=== PATIENT | male | born 1990 | race Caucasian/White ===

== ENCOUNTER 2018-04-28 08:02 | Inpatient (IN) | payer MEDICAID ==
[~2018-04-28] VITALS: Ht 172.7 cm; Wt 73.5 kg
[2018-04-28] MEDS ORDERED: PANTOPRAZOLE SODIUM 40 MG/VIAL IV STA (08:23)
[2018-04-28] MEDS ORDERED: SODIUM CHLORIDE 0.9% 1,000 ML IV ONE (08:23)
[2018-04-28] MEDS ORDERED: PANTOPRAZOLE 80 MG in SODIUM CHLORIDE 0.9% 80 ML IV ONE (08:30)
[2018-04-28] MEDS ORDERED: OCTREOTIDE ACETATE 50 MCG/ML 1ML IV ONE (08:30)
[2018-04-28] MEDS ORDERED: OCTREOTIDE 1,000 MCG in SODIUM CHLORIDE 0.9% 100 ML IV ONE ×2 (08:30→10:00)
[2018-04-28] MEDS ORDERED: ONDANSETRON HCL 4MG/2ML INJ IV ONE (08:30)
[2018-04-28 09:09] LABS: BASOPHILS % 0.7 % (0.0-2.0); HEMATOCRIT. 39.1 % (42.0-52.0); HEMOGLOBIN. 13.2 g/dL (14.0-18.0); MEAN CORPUSCULAR HEMOGLOBIN 31.5 pg (28.0-32.0); MEAN CORPUSCULAR VOLUME 93.3 fL (80.0-94.0); MEAN PLATELET VOLUME 8.8 fl (7.4-10.4); MONOCYTES % 4.1 % (2.0-8.0); NEUTROPHILS % 87.2 % (40.0-76.0); PLATELET 156 x1000/uL (130-400); RED BLOOD CELL COUNT 4.19 mill/uL (4.7-6.1); RED CELL DISTRIBUTION WIDTH 22.3 % (11.6-14.6)
[2018-04-28 09:13] LABS: CHLORIDE 98 mEq/L (98-107)
[2018-04-28 09:16] LABS: PARTIAL THROMBOPLASTIN TIME 22.6 sec (23.4-31.0); PROTHROMBIN TIME 10.1 sec (9.1-11.1)
[2018-04-28 09:17] LABS: ETHANOL BLOOD 107 mg/dL
[2018-04-28 09:34] LABS: PLATELET ESTIMATE NORMAL
[2018-04-28 09:54] LABS: CLARITY URINE CLEAR (CLEAR); COLOR URINE YELLOW (YELLOW); KETONES URINE 1+ (NEGATIVE); LEUKOCYTE ESTERASE URINE NEGATIVE (NEGATIVE); NITRITE URINE NEGATIVE (NEGATIVE); OCCULT BLOOD URINE NEGATIVE (NEGATIVE); PROTEIN URINE TRACE (NEGATIVE); SPECIFIC GRAVITY URINE 1.019 (1.005-1.030); UROBILINOGEN URINE 0.2 E.U./dL (0.2-1.0)
[2018-04-28 12:30] VITALS: BP 133/92
[2018-04-28 13:30] VITALS: BP 133/92
[2018-04-28 14:11] LABS: HEPATITIS B SURFACE ANTIGEN NEGATIVE
[2018-04-28] MEDS ORDERED: INFLUENZA VIRUS VACCINE(AFLURIA) 0.5ML SYR IM ONE (14:15)
[2018-04-28] MEDS ORDERED: PNEUMOCOCCAL 23-VAL P-SAC VAC 0.5 ML IM ONE (14:15)
[2018-04-28] MEDS ORDERED: HYDROMORPHONE HCL/PF 2MG/ML CPJ IV NR (14:15)
[2018-04-28 14:40] LABS: HEPATITIS A AB IGM NEGATIVE (NEGATIVE)
[2018-04-28] MEDS ORDERED: MAGNESIUM/ALUMINUM HYDROXIDE/SIMETHICONE 30ML UDC PO PRN (15:00)
[2018-04-28] MEDS ORDERED: DIPHENHYDRAMINE 50MG/ML VIAL IV PRN (15:00)
[2018-04-28] MEDS ORDERED: ONDANSETRON HCL 4MG/2ML INJ IV PRN (15:00)
[2018-04-28] MEDS ORDERED: KETOROLAC 30MG/ML VIAL IV PRN (15:00)
[2018-04-28] MEDS ORDERED: ACETAMINOPHEN 325MG TABLET PO PRN (15:00)
[2018-04-28] MEDS ORDERED: CLONIDINE 0.1MG TABLET PO PRN (15:00)
[2018-04-28 16:00] VITALS: BP 144/81
[2018-04-28] MEDS ORDERED: MVI, ADULT NO.1 10 ML, FOLIC ACID 1 MG in SODIUM CHLORIDE 0.9% 1,000 ML IV NR ×3 (17:00)
[2018-04-28 18:04] LABS: HEMATOCRIT 31.9 % (42.0-52.0); HEMOGLOBIN 10.8 g/dL (14.0-18.0)
[2018-04-28 20:00] VITALS: BP 143/85
[2018-04-28] MEDS: PANTOPRAZOLE SODIUM 40 MG/VIAL IV SCH (20:47)
[2018-04-28 23:40] LABS: HEMATOCRIT 26.7 % (42.0-52.0); HEMOGLOBIN 9.1 g/dL (14.0-18.0)
[2018-04-29] VITALS (10 sets, daily range): BP systolic 109–131; BP diastolic 60–85
[2018-04-29] MEDS: SODIUM CHLORIDE 0.9% 1,000 ML IV SCH ×3 (02:37→22:53)
[2018-04-29] MEDS: LORAZEPAM 2MG/ML CPJ IV PRN ×3 (03:45→15:56)
[2018-04-29] MEDS ORDERED: LEVETIRACETAM 500 MG in SODIUM CHLORIDE 0.9% 100 ML IV SCH (04:30)
[2018-04-29] MEDS: LEVETIRACETAM 500 MG in SODIUM CHLORIDE 0.9% 100 ML IV SCH ×2 (05:51→21:44)
[2018-04-29 06:50] LABS: HEMATOCRIT 25.1 % (42.0-52.0); HEMOGLOBIN 8.6 g/dL (14.0-18.0)
[2018-04-29 07:08] LABS: CHLORIDE 101 mEq/L (98-107)
[2018-04-29] MEDS ORDERED: PANTOPRAZOLE SODIUM 40 MG/VIAL IV SCH (09:00)
[2018-04-29] MEDS: PANTOPRAZOLE SODIUM 40 MG/VIAL IV SCH ×2 (09:31→21:44)
[2018-04-29] MEDS ORDERED: POTASSIUM CHLORIDE INJ 40 MEQ in DEXT 5% WATER 250 ML IV SCH (10:00)
[2018-04-29] MEDS ORDERED: POTASSIUM CHLORIDE 20MEQ TABLET SR PO NR (11:15)
[2018-04-29 17:49] LABS: HEMATOCRIT 29.7 % (42.0-52.0); HEMOGLOBIN 10.3 g/dL (14.0-18.0); PROTHROMBIN TIME 9.9 sec (9.1-11.1)
[2018-04-29 23:23] LABS: HEMATOCRIT 27.5 % (42.0-52.0); HEMOGLOBIN 9.6 g/dL (14.0-18.0)
[2018-04-30] VITALS: BP 116/70
[2018-04-30 04:00] VITALS: BP 117/69
[2018-04-30 08:00] VITALS: BP 116/74
[2018-04-30] MEDS: LEVETIRACETAM 500 MG in SODIUM CHLORIDE 0.9% 100 ML IV SCH (09:30)
[2018-04-30] MEDS: PANTOPRAZOLE SODIUM 40 MG/VIAL IV SCH ×2 (09:30→21:37)
[2018-04-30] MEDS: SODIUM CHLORIDE 0.9% 1,000 ML IV SCH (09:31)
[2018-04-30 12:00] VITALS: BP 119/71
[2018-04-30 16:00] VITALS: BP 117/69
[2018-04-30 20:00] VITALS: BP 125/75
[2018-04-30 20:23] LABS: EOSINOPHILS % 4.8 % (0.0-5.0); HEMATOCRIT. 32.8 % (42.0-52.0); HEMOGLOBIN. 11.1 g/dL (14.0-18.0); LYMPHOCYTES % 21.6 % (20.0-50.0); MEAN CORPUSCULAR VOLUME 94.8 fL (80.0-94.0); MEAN PLATELET VOLUME 9.1 fl (7.4-10.4); MONOCYTES % 9.9 % (2.0-8.0); NEUTROPHILS % 62.7 % (40.0-76.0); PLATELET 130 x1000/uL (130-400); RED BLOOD CELL COUNT 3.46 mill/uL (4.7-6.1); RED CELL DISTRIBUTION WIDTH 19.9 % (11.6-14.6)
[2018-04-30 20:38] LABS: CHLORIDE 104 mEq/L (98-107)
[2018-04-30] MEDS: LEVETIRACETAM 500MG TABLET PO SCH (21:36)
[2018-04-30] MEDS ORDERED: POTASSIUM CHLORIDE INJ 40 MEQ in DEXT 5% WATER 250 ML IV ONE (22:00)
[2018-04-30] MEDS ORDERED: POTASSIUM CHLORIDE 20MEQ TABLET SR PO NR (22:00)
[2018-04-30] MEDS: KCL 20MEQ/100ML PREMIX 100 ML IV SCH (22:44)
[2018-05-01] VITALS (7 sets, daily range): BP systolic 102–120; BP diastolic 58–87
[2018-05-01] MEDS: KCL 20MEQ/100ML PREMIX 100 ML IV SCH (01:13)
[2018-05-01 07:07] LABS: BASOPHILS % 1.2 % (0.0-2.0); HEMOGLOBIN. 11.8 g/dL (14.0-18.0); LYMPHOCYTES % 20.8 % (20.0-50.0); MEAN CORPUSCULAR HEMOGLOBIN 31.9 pg (28.0-32.0); MEAN CORPUSCULAR VOLUME 94.3 fL (80.0-94.0); MEAN PLATELET VOLUME 8.8 fl (7.4-10.4); MONOCYTES % 9.3 % (2.0-8.0); NEUTROPHILS % 63.7 % (40.0-76.0); PLATELET 152 x1000/uL (130-400); RED BLOOD CELL COUNT 3.71 mill/uL (4.7-6.1); RED CELL DISTRIBUTION WIDTH 19.9 % (11.6-14.6)
[2018-05-01 07:22] LABS: CHLORIDE 106 mEq/L (98-107)
[2018-05-01 07:47] LABS: PHOSPHORUS 3.6 mg/dL (2.5-4.9)
[2018-05-01] MEDS: LEVETIRACETAM 500MG TABLET PO SCH ×2 (08:37→21:02)
[2018-05-01] MEDS ORDERED: POTASSIUM CHLORIDE 20MEQ TABLET SR PO NR ×3 (10:30→15:30)
[2018-05-01] MEDS: PANTOPRAZOLE SODIUM 40 MG/VIAL IV SCH ×2 (10:59→21:02)
== END 2018-05-01 21:15 | disposition home or self-care (01) | DRG 241 ==
LOC: ER 08:02 → ENRESERV 09:58 → 6WST 10:51 → EDBEDREQ 10:55 → 6WST 04-29 05:58
PROVIDERS: ADMIT Internal Medicine; ATTEND Internal Medicine
PROC: 30233N1 Transfusion of Nonautologous Red Blood Cells into Peripheral Vein, Percutaneous Approach (ICD-10-PCS; principal; 2018-04-29)
DX: K29.21 Alcoholic gastritis with bleeding (principal); R56.9 Unspecified convulsions; K76.0 Fatty (change of) liver, not elsewhere classified; D64.9 Anemia, unspecified; F10.239 Alcohol dependence with withdrawal, unspecified; R00.0 Tachycardia, unspecified; Y90.5 Blood alcohol level of 100-119 mg/100 ml; Z82.49 Family history of ischemic heart disease and other diseases of the circulatory system
CPT/HCPCS: 36415; 76700; 80048; 80076; 83735; 84100; 85014; 85018; 85049; 85384; 86705; 86709; 86803; 86850; 86900; 86920; 87340; 90686; 90732; 96374; 99285; C1893; C9113; J1170; J1953; J2060; J2354; J2405; J3480; J3490; J7030; J7050; J7060; P9016

== ENCOUNTER 2018-05-09 10:14 | Emergency (ER) | payer MEDICAID ==
[~2018-05-09] VITALS: Ht 172.7 cm; Wt 73.0 kg
[2018-05-09 12:17] VITALS: BP 120/70
== END 2018-05-09 17:40 | disposition left against medical advice (07) ==
LOC: ER 10:14
DX: Z53.21 Procedure and treatment not carried out due to patient leaving prior to being seen by health care provider (principal)

== ENCOUNTER 2019-01-04 23:29 | Emergency (ER) | payer MEDICAID ==
[~2019-01-04] VITALS: Ht 172.7 cm; Wt 83.8 kg
[2019-01-05] MEDS ORDERED: SODIUM CHLORIDE 0.9% 1,000 ML IV ONE ×2 (02:53→05:01)
[2019-01-05 03:39] LABS: BASOPHILS % 1.1 % (0.0-2.0); EOSINOPHILS % 0.9 % (0.0-5.0); HEMATOCRIT. 38.6 % (42.0-52.0); HEMOGLOBIN. 12.4 g/dL (14.0-18.0); MEAN CORPUSCULAR HEMOGLOBIN 25.4 pg (28.0-32.0); MEAN CORPUSCULAR VOLUME 79.2 fL (80.0-94.0); MEAN PLATELET VOLUME 8.3 fl (7.4-10.4); MONOCYTES % 7.7 % (2.0-8.0); NEUTROPHILS % 34.3 % (40.0-76.0); PLATELET 296 x1000/uL (130-400); RED BLOOD CELL COUNT 4.87 mill/uL (4.7-6.1); RED CELL DISTRIBUTION WIDTH 21.7 % (11.6-14.6)
[2019-01-05 03:46] LABS: CHLORIDE 104 mEq/L (98-107)
[2019-01-05 03:53] LABS: *BARBITURATES SCREEN URINE NEGATIVE (NEGATIVE)
[2019-01-05 03:54] LABS: *AMPHETAMINES SCREEN URINE NEGATIVE (NEGATIVE); *BENZODIAZEPINES SCREEN URINE PRESUMTIVE POSITIVE (NEGATIVE); *COCAINE SCREEN URINE NEGATIVE (NEGATIVE); CANNABINOID URINE SCREEN NEGATIVE (NEGATIVE); METHADONE URINE SCREEN NEGATIVE (NEGATIVE); OPIATES URINE SCREEN NEGATIVE (NEGATIVE); PHENCYCLIDINE URINE SCREEN NEGATIVE (NEGATIVE)
[2019-01-05 04:20] LABS: ETHANOL BLOOD 382 mg/dL
[2019-01-05] MEDS ORDERED: LORAZEPAM 0.5MG TABLET PO ONE (05:15)
[2019-01-05 07:15] VITALS: BP 101/58
== END 2019-01-05 07:16 | disposition home or self-care (01) ==
LOC: ER 23:29
DX: F10.229 Alcohol dependence with intoxication, unspecified (principal); G40.909 Epilepsy, unspecified, not intractable, without status epilepticus; Y90.8 Blood alcohol level of 240 mg/100 ml or more
CPT/HCPCS: 36415; 80053; 80305; 80320; 85025; 99283; J7030; Z7610; G0480